=== PATIENT | female | born 1995 | race Caucasian/White ===

== ENCOUNTER → 2018-03-18 | Day surgery (SDC) | payer OTHER, BC ==
--- NOTE | 2018-03-18 16:23 | RADIOLOGY REPORT (SQ) ---
EXAM DESCRIPTION: ARTHRO SHOULDER INJECTION COMPLETE DATE/TIME: 03/18/2018 3:02 pm REASON FOR STUDY: PAIN IN LEFT SHOULDER S46.212A STRAIN OF MUSC/FASC/TEND PRT BICEPS, LEFT ARM, INI T FINDINGS: Please see combined report for performance of procedure and radiologic supervision and int erpretation. IMPRESSION: Please see combined report for performance of procedure and radiologic supervision and i nterpretation. Reading location - IP/workstation name: [email or web address]
--- NOTE | 2018-03-18 16:24 | RADIOLOGY REPORT (SQ) ---
EXAM DESCRIPTION: FLUORO/NEEDLE PLACEMENT COMPLETED DATE/TIME: 03/18/2018 3:02 pm REASON FOR STUDY: PAIN IN LEFT SHOULDER S46.212A STRAIN OF MUSC/FASC/TEND PRT BICEPS, LEFT ARM, INI T COMPARISON: None. FLUOROSCOPY TIME: 0.01 minutes 1 images saved to PACS. LIMITATIONS: None. PROCEDURE: Procedure, risks, benefits and alternatives explained to patient who then gave written co nsent. The left shoulder was marked and a time out was called for correct procedure verification. Po sterior entry site marked using fluoroscopic guidance. Shoulder prepped and draped using sterile reji hnique. Local anesthesia achieved using 1% lidocaine injection. Hypodermic needle introduced into t he joint space under direct fluoroscopic visualization. Non-ionic contrast instilled to confirm intra -articular position. Dilute gadolinium solution then injected. Needle removed and entry site covered with sterile bandage. No immediate complications noted. TECHNIQUE: Digital images acquired during fluoroscopy and stored on PACS. Patient immediately take n to the MR suite for additional imaging. INJECTION LOCATION: Posterior CONTRAST TYPE AND AMOUNT: 12 mL ProHance solution IMPRESSION: SUCCESSFUL NEEDLE PLACEMENT AND INJECTION FOR left SHOULDER MR ARTHROGRAM USING POSTERIO R APPROACH. COMMENT: Quality ID [id number]: Final reports for procedures using fluoroscopy that document radiation exp osure indices, or exposure time and number of fluorographic images (if radiation exposure indices are not available) TECHNICAL DOCUMENTATION: JOB ID: [id number] [employer]- All Rights Reserved Reading location - IP/workstation name: [email or web address]
--- NOTE | 2018-03-19 16:03 | RADIOLOGY REPORT (SQ) ---
EXAM DESCRIPTION: MRI LT UPPER JOINT WITH COMPLETED DATE/TIME: 03/18/2018 3:39 pm REASON FOR STUDY: PAIN IN LEFT SHOULDER S46.212A STRAIN OF MUSC/FASC/TEND PRT BICEPS, LEFT ARM, INI T COMPARISON: None. TECHNIQUE: Left shoulder images acquired and stored on PACS. Oblique coronal, oblique sagittal, and axial imaging to include fat sensitive sequences as T1, water sensitive sequences as FST2/STIR, and c ontrast sensitive sequences as FST1. LIMITATIONS: None. FINDINGS: JOINT DISTENTION: Adequate. No loose bodies. BONE MARROW AND CORTEX: Normal. AC JOINT: No bulky degenerative overgrowth. No widening. Subacromial space maintained. GLENOHUMERAL JOINT: No subluxation or dislocation evident. No focal chondral lesions or reactive bon e changes. ROTATOR CUFF: Generally intact without suggestion of tear or significant tendinosis. No cuff muscle atrophy. Intact rotator interval. LABRUM AND BICEPS LABRAL COMPLEX: Suspect type 2 tear involving the superior labrum and biceps anchor . Biceps tendon intact. INFERIOR LABRAL COMPLEX: No displaced tear. No paralabral cyst. ADJACENT SOFT TISSUES: No axillary adenopathy or regional mass. OTHER: No other significant finding. IMPRESSION: 1. Suspect type 2 SLAP tear. Biceps intact. 2. Cuff intact. TECHNICAL DOCUMENTATION: JOB ID: [id number] [employer]- All Rights Reserved Reading location - IP/workstation name: [email or web address]
== END ==
LOC: RAD 14:31
PROVIDERS: ATTEND Family Medicine
DX: S46.212A Strain of muscle, fascia and tendon of other parts of biceps, left arm, initial encounter (principal); X58.XXXA Exposure to other specified factors, initial encounter
CPT/HCPCS: 73222; 77002; 23350; A9576

== ENCOUNTER 2018-06-02 07:48 | Day surgery (SDC) | payer BC ==
[~2018-06-02 07:48] MED LIST: BUPIVACAINE HCL 0.5 % INJ/PF 30 ML SDV ONE; CEFAZOLIN 2 GM/D5W RTU 2 GM/50 ML RTUPB IV PRN; EPINEPHRINE INJ/PF 1 MG/1 ML AMPULE ONE; RINGERS SOLUTION,LACTATED 1,000 ML IV PRN
[2018-06-02] MEDS ORDERED: SUCCINYLCHOLINE CHLORIDE INJ 200 MG/10 ML VIAL ONE (08:01)
[2018-06-02] MEDS ORDERED: MIDAZOLAM 2 MG/2 ML INJ ONE (10:07)
[2018-06-02] MEDS ORDERED: HYDROMORPHONE HCL INJ/PF 2 MG/ML AMPULE ONE (10:07)
[2018-06-02] MEDS ORDERED: FENTANYL CITRATE INJ/PF 250 MCG/5 ML AMPULE ONE (10:07)
[2018-06-02] MEDS ORDERED: DEXAMETHASONE SOD PHOSPHATE INJ 4 MG/1 ML VIAL ONE (10:07)
[2018-06-02] MEDS ORDERED: PROPOFOL INJ 200 MG/20 ML VIAL IV ONE (10:08)
[2018-06-02] MEDS ORDERED: ACETAMINOPHEN 1,000 MG/100 ML RTUPB IV ONE (10:08)
[2018-06-02] MEDS ORDERED: ONDANSETRON HCL INJ/PF 4 MG/2 ML SDV ONE (10:08)
[2018-06-02] MEDS ORDERED: DIPHENHYDRAMINE HCL 50 MG/ML VIAL IV PRN (11:07)
[2018-06-02] MEDS ORDERED: MEPERIDINE HCL/PF INJ 25 MG/1 ML DISP.SYRIN IV PRN (11:07)
[2018-06-02] MEDS ORDERED: FENTANYL CITRATE INJ/PF 100 MCG/2 ML AMPUL IV PRN ×2 (11:07)
[2018-06-02] MEDS ORDERED: OXYCODONE-ACETAMINOPHEN 5-325 MG TABLET PO PRN ×4 (11:07→11:54)
[2018-06-02] MEDS ORDERED: PROMETHAZINE HCL INJ 25 MG/1 ML VIAL IV PRN ×2 (11:07)
--- NOTE | 2018-06-02 11:52 | Operative Report ---
Operative Report DATE OF SURGERY: 06/02/18 PREOPERATIVE DIAGNOSIS: Left shoulder type II SLAP tear POSTOPERATIVE DIAGNOSIS: Left shoulder type II SLAP tear OPERATION: Left shoulder arthroscopic labral debridement and subpectoralis biceps tenodesis SURGEON: DARYL HALL ANESTHESIA: GA TISSUE REMOVED OR ALTERED: As above COMPLICATIONS: None ESTIMATED BLOOD LOSS: 10 mL INTRAOPERATIVE FINDINGS: As above PROCEDURE: Patient received 1 g of IV Ancef. Patient then was taken to the operating room where she was induced and intubated in supine position. Patient then was secured in the beachchair position where the left shoulder was prepped and draped in a normal surgical fashion. Was done identifying the left shoulder as the correct site. Spinal needle was used to insert into the glenohumeral joint and I proceeded to distend the capsule with sterile saline solution. 11 blade was used to establish my posterior portal and I introduced the cannula into the glenohumeral joint. Once I got return of fluid I confirm proper placement and placed a camera. Under direct visualization I placed a spinal needle marked my anterior portal and used an 11 blade to establish a. I placed a purple cannula and then through the cannula was able to probe and proceed with my diagnostic scope which show pristine glenohumeral joint cartilage and intact labrum anterior, inferior and posterior. As suspected patient had a type II SLAP tear. To my attention to the footprint of the rotator cuff which showed to be intact with no partial tearing. At this point through the anterior portal I use arthroscopic scissors to do a tenotomy of the long head of the biceps at the attachment of the glenoid superiorly. I proceeded then to remove fluid from the shoulder joint and removed the instruments. A 1 inch incision was done just medial to the axillary fold dissection was done with Metzenbaum scissors and hemostasis was obtained with the Bovie. Able to then cut the fascia overlying the biceps and then hooked the long head of biceps with a 90 clamp. Was able then to use a fiber loop and suture 2 cm from the muscular tendinous junction and cut the remaining tendon. I used 2 Homans to reflect tissue on the side of the humerus. I used a 4 mm spade tip guidepin then to do my proximal cortex drilling into the intramedullary canal of the humerus. I fed the 2 ends of the fiber wire into the biceps tenodesis button as recommended by the [employer]. Pulled out the guidepin and then proceeded to insert the button into the intramedullary canal. I was able to successfully flipped the button and after releasing securing the biceps. I used a free needle the comes in the care and pass one of the [employer] ends through the biceps one more time to further secure it. Once I since the biceps onto the humeral cortex I then proceeded to go several half hitch knots for added fixation. Instruments were removed and used bulb irrigation to wash the tissue. I proceeded to approximate the tissue with 2-0 Vicryl and close the skin with 3-0 nylon. The 2 of the portal sites were closed with 3-0 nylon as well. I placed Xeroform over the incisions and covered it with 4 x 4 dressing and ABD pads. Secured the dressing with Medipore tape. Patient's arm was placed in the sling and the patient then was placed in supine position extubated and sent to PACU in stable condition.
[2018-06-02] MEDS ORDERED: FENTANYL CITRATE INJ/PF 100 MCG/2 ML AMPUL ONE (11:53)
--- NOTE | 2018-06-02 11:54 | Discharge Summary ---
Discharge Summary (SDC) - Discharge Final Diagnosis: Left shoulder arthroscopic debridement and biceps tenodesis Date of Surgery: 06/02/18 Discharge Date: 06/02/18 Condition: Good Treatment or Instructions: Patient is instructed to follow up in 10-14 days. Patient instructed to remove dressing in 4 days then can shower and apply Band- Aids as needed. Patient to wear sling for comfort but okay to remove for shower and pendulum exercises. Pendulum exercises are instructed to be done 3 times a day ideally with breakfast, lunch, dinners and showers. Patient instructed to call if there is any signs of redness or drainage fevers or chills. Prescriptions: Oxycodone HCl/Acetaminophen [Percocet 5-325 mg Tablet] 1 - 2 tab PO ASDIR PRN # 30 tablet PRN Reason: Discharge Diet: As Tolerated Respiratory Treatments at Home: Deep Breathing/Coughing Discharge Activity: No Driving, No Lifting/Push/Pulling, Slowly Increase Activity, Walk Frequently Home Care Assistance: None Needed Report the Following to Your Physician Immediately: Shortness of Breath, Vomiting, Increase in Pain, Signs of Hyperglycemia, Signs of Hypoglycemia, Yellow Skin, Fever over 101 Degrees, Unusual Bleeding, Redness, Swelling, Warmth , Increased Soreness, Drainage-Yellow, Drainage-[place], Drainage-Green, Drainage- Foul Smelling
[2018-06-02] MEDS: FENTANYL CITRATE INJ/PF 100 MCG/2 ML AMPUL IV PRN ×2 (11:55→12:00)
[2018-06-02] MEDS ORDERED: MORPHINE SULFATE 10 MG/ML INJ ONE (11:57)
[2018-06-02] MEDS: MORPHINE SULFATE 10 MG/ML INJ IV PRN ×2 (12:01→12:06)
[2018-06-02] MEDS ORDERED: DIPHENHYDRAMINE HCL 50 MG/ML VIAL ONE (12:04)
[2018-06-02] MEDS ORDERED: OXYCODONE-ACETAMINOPHEN 5-325 MG TABLET ONE (12:49)
[2018-06-02] MEDS ORDERED: OXYCODONE-ACETAMINOPHEN 5-325 MG TABLET PO ONE (14:00)
[2018-06-02 15:16] VITALS: BP 134/95
== END 2018-06-02 13:55 | disposition home or self-care (01) ==
LOC: OROUT 07:48
PROVIDERS: ATTEND Orthopaedic Surgery
DX: S43.492A Other sprain of left shoulder joint, initial encounter (principal); S43.432A Superior glenoid labrum lesion of left shoulder, initial encounter; X58.XXXA Exposure to other specified factors, initial encounter; Y93.I1 Activity, roller coaster riding; M25.512 Pain in left shoulder; Z79.1 Long term (current) use of non-steroidal anti-inflammatories (NSAID)
CPT/HCPCS: 81025; 24340; 29807; C1713; J2250; J3490; J1100; J1200; J0171; J3010 ×2; J2270; J0330; J2405; J2704; J0690; J0131; 1630; J1170